=== PATIENT | male | born 1950 | race Caucasian/White ===

== ENCOUNTER → 2018-07-04 | Day surgery (SDC) | payer MEDICARE, OTHER ==
[~2018-07-04] MED LIST: Lactated Ringers 1,000 ML IV SCH; Propofol 200 MG/20 ML SDV IV ONE
--- NOTE | 2018-07-04 14:56 | OR ---
DATE OF OPERATION: 07/04/2018 PREOPERATIVE DIAGNOSIS: SCREENING COLONOSCOPY. POSTOPERATIVE DIAGNOSIS: SCREENING COLONOSCOPY. SURGEON: Cr Murillo MD PROCEDURE: FULL-LENGTH COLONOSCOPY. ANESTHESIA: SUPERVISOR OVENS. COMPLICATIONS: None. SPECIMEN: None. FINDINGS: 1. Full-length colonoscopy. 2. Mild sigmoid diverticulosis. RECOMMENDATIONS: Follow up colonoscopy every 10 years. INDICATIONS: The patient was in for routine physical. It has been over 10 years since his last colonoscopy. Tiffany Lee PA-C recommended a screening procedure. DESCRIPTION OF PROCEDURE: The patient was prepped and draped, placed in left lateral decubitus position. A lubricated Olympus colonoscope was inserted and with ease advanced to the cecum and able to directly visualize the ileocecal valve and appendiceal orifice. The bowel prep was adequate. Upon withdrawal of the scope, throughout the entire length of the colon, I could find no signs of any polyps, mass, ulceration, or bleeding sites. No vascular abnormalities or signs of colitis. The patient did have some scattered diverticula in the sigmoid colon, but very minimal or mild in severity. The rectal vault was benign. Retroflexion of scope in the rectum showed no perianal lesions. Air was suctioned. Scope removed without complication. CLYDE/PERFECTO /[id number]
== END ==
LOC: CC.SDS 07:14
PROVIDERS: ATTEND Family Medicine
DX: Z12.11 Encounter for screening for malignant neoplasm of colon (principal); K57.30 Diverticulosis of large intestine without perforation or abscess without bleeding; J01.90 Acute sinusitis, unspecified; E78.5 Hyperlipidemia, unspecified; G47.33 Obstructive sleep apnea (adult) (pediatric); N42.9 Disorder of prostate, unspecified; Z79.899 Other long term (current) drug therapy; Z88.8 Allergy status to other drugs, medicaments and biological substances
CPT/HCPCS: J2704; J7120

== ENCOUNTER 2019-03-16 01:06 | Emergency (ER) | payer MEDICARE, OTHER ==
--- NOTE | 2019-03-16 01:46 | EDM.PDOC ---
ED HPI GENERAL MEDICAL PROBLEM - General Chief Complaint: General Stated Complaint: tender area to penis Time Seen by Provider: 03/16/19 01:24 Source of Information: Reports: Patient History Limitations: Reports: No Limitations - History of Present Illness INITIAL COMMENTS - FREE TEXT/NARRATIVE: burning in urethra about "an inch inside". Feels that he may have passed a kidney stone earlier and is questioning if one may be stuck or not. He states that the pain that he had when he urinated here was less than when he urinated earlier. He did see urology last week and has follow up with them for CT and cysto the end of march as he has some chronic blood in his urine. Does not have any obvious bloody discharge, redness or open areas on penis. Onset: Gradual Location: Reports: Other (penis) Quality: Reports: Burning Penis Pain Score (Numeric/FACES): 2 - Related Data Allergies Allergy/AdvReac Type Severity Reaction Status Date / Time cyclobenzaprine Allergy Cannot Verified 03/16/19 01:13 [From Flexeril] Remember anapsin Allergy Other Uncoded 03/16/19 01:13 Home Meds: Home Meds Bacitracin [Bacitracin Oint] 1 applic TOP DAILY PRN 07/03/18 [History] Dutasteride/Tamsulosin HCl [Dutasteride-Tamsulosin 0.5-0.4] 1 cap PO DAILY PRN 07/03/18 [History] Ketoconazole [Nizoral 2% Crm] 1 applic TOP DAILY PRN 07/03/18 [History] MO/Pet,Wh/Phenylephrine/Shk Lv [Preparation H Oint] 1 applic RECTAL DAILY PRN [History] Triamcinolone Acetonide [Triamcinolone Acetonide 0.5%] 1 applic TOP DAILY PRN [History] Past Medical History Respiratory History: Reports: Pneumothorax Other Respiratory History: spontaneous pneumothorax Genitourinary History: Reports: Renal Calculus - Past Surgical History GI Surgical History: Reports: Hernia, Inguinal Social & Family History - Tobacco Use Smoking Status *Q: Never Smoker - Caffeine Use Caffeine Use: Reports: None - Recreational Drug Use Recreational Drug Use: No ED ROS GENERAL - Review of Systems Review Of Systems: See Below Constitutional: Denies: Fever, Chills : Reports: Dysuria, Pain ED EXAM, GENERAL - Physical Exam Exam: See Below Exam Limited By: No Limitations General Appearance: Alert, WD/WN, No Apparent Distress Respiratory/Chest: Lungs Clear, Normal Breath Sounds Cardiovascular: Regular Rate, Rhythm, No Edema GI/Abdominal: Normal Bowel Sounds, Soft, Non-Tender, No Organomegaly, Other (no CVA tenderness.) (Male) Exam: Normal Inspection, Circumcised. No: Penile Lesions, Rash, Scrotal Swelling, Scrotum Tenderness (L), Scrotum Tenderness (R), Suprapubic Fullness, Testicular Tenderness (L), Testicular Tenderness (R), Urethral Discharge Skin Exam: Warm, Dry Course - Vital Signs Last Recorded V/S: Last Vital Signs Temp 97 F 03/16/19 01:06 Pulse 57 L 03/16/19 01:06 Resp 16 03/16/19 01:06 BP 138/86 03/16/19 01:06 Pulse Ox 100 03/16/19 01:06 - Orders/Labs/Meds Orders: Active Orders 24 hr Category Date Time Status CALCULI, URINARY Routine Lab 03/16/19 06:55 Ordered Labs: Laboratory Tests 03/16/19 Range/Units 01:14 Urine Color Yellow (YELLOW) Urine Appearance Slightly cloudy (CLEAR) Urine pH 7.0 (4.5-8.0) Ur Specific [place] 1.020 (1.003-1.020) Urine Protein 30 H (NEGATIVE) mg/dL Urine Glucose (UA) Negative (NEGATIVE) mg/dL Urine Ketones Negative (NEGATIVE) mg/dL Urine Occult Blood Negative (NEGATIVE) Urine Nitrite Negative (NEGATIVE) Urine Bilirubin Negative (NEGATIVE) Urine Urobilinogen 0.2 (0.2-1.0) EU/dL Ur Leukocyte Esterase Negative (NEGATIVE) Urine RBC 5-10 H (0-5) /HPF Urine WBC Not seen (0-5) /HPF Amorphous Sediment Few H (NOT SEEN) /HPF Urine Mucus Occasional H (NOT SEEN) /HPF Departure - Departure Time of Disposition: 01:43 Disposition: Home, Self-Care 01 Condition: Good Clinical Impression: Dysuria - Discharge Information *PRESCRIPTION DRUG MONITORING PROGRAM REVIEWED*: Not Applicable *COPY OF PRESCRIPTION DRUG MONITORING REPORT IN PATIENT HELEN: Not Applicable Referrals: Tiffany Lee PA-C [Primary Care Provider] - Forms: ED Department Discharge Additional Instructions: Push fluids as much as possible follow up with urology as scheduled Call urology in AM and discuss with them if the pain continues. - Problem List & Annotations (1) Dysuria SNOMED Code(s): 43728458 Code(s): R30.0 - DYSURIA Status: Acute Priority: High - Problem List Review Problem List Initiated/Reviewed/Updated: Yes - My Orders Last 24 Hours: My Active Orders 03/16/19 06:55 CALCULI, URINARY Routine - Assessment/Plan Last 24 Hours: My Active Orders 03/16/19 06:55 CALCULI, URINARY Routine Plan: If any stones are noted may being them in for analysis at that time.
== END 2019-03-16 01:55 | disposition home or self-care (01) ==
LOC: CC.ED 01:06
DX: R30.0 Dysuria (principal); Z88.8 Allergy status to other drugs, medicaments and biological substances
CPT/HCPCS: 81001; 82360; 99282; 99283

== ENCOUNTER → 2022-03-15 | Day surgery (SDC) | payer MEDICARE, OTHER ==
[~2022-03-15] MED LIST changes: +Dexamethasone 4 MG/ML SDV ONE; +Flumazenil 0.1 MG/ML 10 ML MDV ONE; +Glycopyrrolate 0.2 MG/ML 2 ML SDV ONE; +HYDROmorphone 1 MG/ML Syringe ONE; +Ketamine 200 MG/20 ML MDV ONE; +Ketorolac 30 MG/ML SDV ONE; +Lidocaine 1% with EPINEPHrine 1:100,000 20 ML MDV INJECT ONE; +Midazolam 1 MG/ML 2 ML SDV ONE; +Ondansetron 4 MG/2 ML SDV ONE; -Propofol 200 MG/20 ML SDV IV ONE; +Propofol 200 MG/20 ML SDV ONE; +ceFAZolin 1 GM Vial IVPUSH ONE; +fentaNYL 100 MCG/2 ML SDV ONE
== END ==
LOC: CC.SDS 11:13
PROVIDERS: ATTEND Surgery
DX: K40.90 Unilateral inguinal hernia, without obstruction or gangrene, not specified as recurrent (principal); E78.5 Hyperlipidemia, unspecified; G47.30 Sleep apnea, unspecified; Z88.8 Allergy status to other drugs, medicaments and biological substances; Z88.2 Allergy status to sulfonamides; Z79.899 Other long term (current) drug therapy; Z98.890 Other specified postprocedural states
CPT/HCPCS: J0690; J1100; J1170; J1885; J2250; J2405; J2704; J3010; J3490; J7120

== ENCOUNTER 2024-04-20 11:45 | Emergency (ER) | payer MEDICARE, OTHER | END 2024-04-20 12:03 | disposition home or self-care (01) | LOC: CC.ED 11:45 | DX: R23.8 Other skin changes (principal); Z88.8 Allergy status to other drugs, medicaments and biological substances; Z88.2 Allergy status to sulfonamides; Z79.899 Other long term (current) drug therapy | CPT/HCPCS: 99283 ==

== ENCOUNTER → 2024-11-06 | Day surgery (SDC) | payer MEDICARE, OTHER ==
[~2024-11-06] MED LIST changes: -Dexamethasone 4 MG/ML SDV ONE; -Flumazenil 0.1 MG/ML 10 ML MDV ONE; -Glycopyrrolate 0.2 MG/ML 2 ML SDV ONE; -HYDROmorphone 1 MG/ML Syringe ONE; -Ketorolac 30 MG/ML SDV ONE; -Lactated Ringers 1,000 ML IV SCH; -Lidocaine 1% with EPINEPHrine 1:100,000 20 ML MDV INJECT ONE; +Lidocaine 2% 20 ML MDV ONE; -Midazolam 1 MG/ML 2 ML SDV ONE; -Ondansetron 4 MG/2 ML SDV ONE; -ceFAZolin 1 GM Vial IVPUSH ONE; -fentaNYL 100 MCG/2 ML SDV ONE; +fentaNYL 50 MCG/ML SDV ONE
[2024-11-06] MEDS: Sodium Chloride 0.9% 250 ML IV SCH (09:31)
== END ==
LOC: CC.SDS 08:57
PROVIDERS: ATTEND Family Medicine
DX: K21.00 Gastro-esophageal reflux disease with esophagitis, without bleeding (principal); K22.2 Esophageal obstruction; K44.9 Diaphragmatic hernia without obstruction or gangrene; E78.5 Hyperlipidemia, unspecified; Z79.899 Other long term (current) drug therapy; Z88.2 Allergy status to sulfonamides; Z88.8 Allergy status to other drugs, medicaments and biological substances
CPT/HCPCS: 87081; 88305; J2704; J3010; J3490; J7050